=== PATIENT | female | born 1985 | race Two or more races ===

== ENCOUNTER 2017-01-27 15:08 | Emergency (ER) | payer SELFPAY ==
[~2017-01-27] VITALS: Ht 162.6 cm; Wt 68.0 kg
[2017-01-27 15:45] VITALS: BP 111/65
--- NOTE | 2017-01-27 16:41 | PHYS DOC ---
Adult General Chief Complaint Chief Complaint: HEADACHE HPI HPI Patient is a 31 year old female with no significant medical history who presents today with a moderate right frontal headache that began yesterday. Patient's also complaining of photophobia. Patient states she's had intermittent episodes of nausea and vomiting since yesterday. Patient denies this being the worst headache in her life. is interpreting on behalf of patient for Filipino. states patient has not complained of abdominal pain. He states patient is currently on control as well as Bactrim for UTI. Review of Systems Review of Systems Constitutional: Denies fever or chills [] Eyes: Denies change in visual acuity, redness, or eye pain [] HENT: Denies nasal congestion or sore throat [] Respiratory: Denies cough or shortness of breath [] Cardiovascular: No additional information not addressed in HPI [] GI: Nausea and vomiting : Denies dysuria or hematuria [] Musculoskeletal: Denies back pain or joint pain [] Integument: Denies rash or skin lesions [] Neurologic: headache, Endocrine: Denies polyuria or polydipsia [] Current Medications Current Medications Current Medications Medications (Trade) Dose Ordered Sig/Jacklyn Start Time Stop Time Status Last Admin Dose Admin Diphenhydramine HCl (Benadryl) 25 mg 1X ONCE 01/27/17 16:45 01/27/17 16:53 DC 01/27/17 17:04 25 MG Famotidine (Pepcid) 20 mg 1X ONCE 01/27/17 16:45 01/27/17 16:53 DC 01/27/17 17:04 20 MG Ketorolac Tromethamine (Toradol) 30 mg 1X ONCE 01/27/17 16:45 01/27/17 16:53 DC 01/27/17 17:05 30 MG Prochlorperazine Edisylate (Compazine) 10 mg 1X ONCE 01/27/17 16:45 01/27/17 16:53 DC 01/27/17 17:04 10 MG Sodium Chloride 1,000 ml @ 1,000 mls/hr 1X ONCE 01/27/17 16:45 01/27/17 17:44 DC 01/27/17 17:05 1,000 MLS/HR Allergies Allergies Allergies Coded Allergies Type Severity Reaction Last Updated Verified No Known Drug Allergies 6/4/17 No Physical Exam Physical Exam Constitutional: Well developed, well nourished, no acute distress, non-toxic appearance. [] HENT: Normocephalic, atraumatic, bilateral external ears normal, oropharynx moist, no oral exudates, nose normal. [] Eyes: PERRLA, EOMI, conjunctiva normal, no discharge. [] Neck: Normal range of motion, no tenderness, supple, no stridor. [] Cardiovascular:Heart rate regular rhythm, no murmur [] Lungs & Thorax: Bilateral breath sounds clear to auscultation [] Abdomen: Bowel sounds normal, soft, no tenderness, no masses, no pulsatile masses. [] Skin: Warm, dry, no erythema, no rash. [] Back: No tenderness, no CVA tenderness. [] Extremities: No tenderness, no cyanosis, no clubbing, ROM intact, no edema. [] Neurologic: Alert and oriented X 3, normal motor function, normal sensory function, no focal deficits noted. Cranial nerves II through XII intact Psychologic: Affect normal, judgement normal, mood normal. [] Current Patient Data Vital Signs Vital Signs Date Time Temp Pulse Resp B/P (MAP) Pulse Ox O2 Delivery O2 Flow Rate FiO2 01/27/17 15:45 97.9 77 17 111/65 (80) 100 Room Air 97.9 Lab Values Laboratory Tests Test 01/27/17 16:45 Urine Collection Type Unknown Urine Color Yellow Urine Clarity Cloudy Urine pH 7.0 Urine Specific [place] 1.010 Urine Protein Negative mg/dL (NEG-TRACE) Urine Glucose (UA) Negative mg/dL (NEG) Urine Ketones (Stick) Negative mg/dL (NEG) Urine Blood Negative (NEG) Urine Nitrite Negative (NEG) Urine Bilirubin Negative (NEG) Urine Urobilinogen Dipstick 0.2 mg/dL (0.2 mg/dL) Urine Leukocyte Esterase Large (NEG) Urine RBC 0 /HPF (0-2) Urine WBC 20-40 /HPF (0-4) Urine Squamous Epithelial Cells Many /LPF Urine Bacteria Many /HPF (0-FEW) Urine Opiates Screen Neg (NEG) Urine Methadone Screen Neg (NEG) Urine Barbiturates Neg (NEG) Urine Phencyclidine Screen Neg (NEG) Urine Amphetamine/Methamphetamine Neg (NEG) Urine Benzodiazepines Screen Neg (NEG) Urine Cocaine Screen Neg (NEG) Urine Cannabinoids Screen Neg (NEG) Urine Ethyl Alcohol Neg (NEG) EKG EKG [] Radiology/Procedures Radiology/Procedures [] Course & Med Decision Making Course & Med Decision Making Pertinent Labs and Imaging studies reviewed. (See chart for details) This is a 31-year-old female patient who presents today with right frontal headache with nausea vomiting and photosensitivity that began yesterday. Patient 's headache is suspicious for migraine. She was given a liter of fluid Toradol and Compazine, and Benadryl. She is resting comfortably right now. She states her pain is completely gone. She was discharged with Imitrex and promethazine. Her urine is positive for UTI. She states she just completed a course of Bactrim yesterday. I switched her to Cipro. She has a PCP. I recommended she follows up in the next 7 days. Dragon Disclaimer Dragon Disclaimer This electronic medical record was generated, in whole or in part, using a voice recognition dictation system. Departure Departure Impression: Primary Impression: Migraine headache Additional Impression: Urinary tract infection Disposition: 01 HOME, SELF-CARE Condition: STABLE Referrals: NO PCP (PCP) Follow-up with your doctor in 7 days Patient Instructions: Migraine Headache, Urinary Tract Infection Additional Instructions: You were seen for a migraine headache and urinary tract infection. Push fluids. Complete your antibiotics. Take the prescribed medicines for pain and nausea. Follow-up with your doctor in the next 7 days. Scripts Ciprofloxacin Hcl (CIPRO) 500 Mg Tablet 1 TAB PO BID, #14 TAB Prov: MITCH BREEN APRN 01/27/17 Sumatriptan Succinate (IMITREX) 50 Mg Tablet 1 TAB PO UD, #9 TAB 1 Refill Prov: BRETTAMITCH PHOTOGRAPHIC MACHINE OPERATOR 01/27/17 Promethazine Hcl (PROMETHAZINE HCL) 25 Mg Tablet 1 TAB PO PRN Q6HRS, #20 TAB Prov: BRETTAMITCH PHOTOGRAPHIC MACHINE OPERATOR 17 Problem Qualifiers Primary Impression: Migraine headache Migraine type: without aura Status migrainosus presence: without status migrainosus Intractability: not intractable Qualified Codes: G43.009 - Migraine without aura, not intractable, without status migrainosus Additional Impression: Urinary tract infection Urinary tract infection type: acute cystitis Hematuria presence: without hematuria Qualified Codes: N30.00 - Acute cystitis without hematuria MITCH BREEN APRN Jan 27, 2017 16:41
[2017-01-27] MEDS ORDERED: PROCHLORPERAZINE 10 MG/2 ML VIAL. IV ONE (16:45)
[2017-01-27] MEDS ORDERED: diphenhydrAMINE 50 MG/ML VIAL IVP ONE (16:45)
[2017-01-27] MEDS ORDERED: IV NORMAL SALINE 1000ML BAG 1,000 ML IV ONE (16:45)
[2017-01-27] MEDS ORDERED: FAMOTIDINE 20 MG/2 ML VIAL IVP ONE (16:45)
[2017-01-27] MEDS ORDERED: KETOROLAC TROMETHAMINE 30 MG/ML INJ. IV ONE (16:45)
[2017-01-27 17:04] LABS: BILIRUBIN,URINE NEGATIVE (NEG); GLUCOSE,URINE NEGATIVE (NEG); NITRITE,URINE NEGATIVE (NEG); PROTEIN,URINE NEGATIVE (NEG-TRACE); UROBILINOGEN,URINE 0.2 mg/dL (0.2 mg/dL)
[2017-01-27 17:09] LABS: BARBITURATES NEG (NEG); BENZODIAZEPINES NEG (NEG); CANNABINOIDS NEG (NEG); COCAINE NEG (NEG); METHADONE NEG (NEG); OPIATES NEG (NEG); PHENCYCLIDINE NEG (NEG)
[2017-01-27 17:12] LABS: BACTERIA,URINE MANY /HPF (0-FEW); RBC,URINE 0 /HPF (0-2); SQUAMOUS EPITHELIAL CELL,UR MANY /LPF; WBC,URINE 20-40 /HPF (0-4)
[2017-01-27] MEDS ORDERED: PROM25TA10 PO (18:07)
[2017-01-27] MEDS ORDERED: SUMA50TA3 PO (18:07)
[2017-01-27] MEDS ORDERED: CIPR500T94 PO (18:07)
== END 2017-01-27 18:20 | disposition home or self-care (01) ==
LOC: ER 15:08
DX: G43.909 Migraine, unspecified, not intractable, without status migrainosus (principal); N30.00 Acute cystitis without hematuria
CPT/HCPCS: 80305; 80320; 81001; 81025; 96361; 96374; 96375; 99284; J0780; J1200; J1885; J7030; S0028; G0481